=== PATIENT | male | born 1960 | race Caucasian/White ===

== ENCOUNTER 2022-12-11 09:08 | Outpatient (CLI) | payer OTHER, SELFPAY ==
--- NOTE | 2022-12-11 09:38 | CT_ITS ---
WS: [id number] CT chest wo con [id number] HISTORY: MAC TECHNIQUE: Axial imaging performed through the thorax. Coronal and sagittal reformats are submitted. All CT scans at [facility] use at least one of these dose optimization techniques: automated exposure control; mA and/or kV adjustment per patient size (includes targeted exams where dose is mat ched to clinical indication); or iterative reconstruction. CONTRAST: None DLP: 269.61 mGy.cm COMPARISON: None available. Lungs and central airway: Multilobar, bilateral irregular pulmonary masses. Some of these masses are cavitated with thick irregular escobar. The largest cavitation in the RIGHT upper lobe with asymmetric wall thickening measures 5.6 x 4.2 cm. Additional cavitations, scattered pulmonary nodules and tree-i n-bud airspace distribution. Irregular cavitary lesion LEFT upper lobe measures 2.5 x 4.2 cm. Additio nal scattered opacifications. Smaller cavitary lesions in the LEFT lung base measures 2.0 x 2.1 cm. T here are additional bilateral nodules with tree-in-bud airspace disease. Upper lobe bronchiectasis. Pleura: Normal. No pleural effusion. Heart and pericardium: Normal size heart with no pericardial effusion. Mediastinum and joe: Small mediastinal and hilar lymph nodes. Largest RIGHT paratracheal lymph node is 12 mm. Vessels: Mild size aorta and pulmonary artery. Chest wall and lower neck: No soft tissue masses. Upper abdomen: Small hiatal hernia. No adrenal mass. Osseous structures: No destructive process. CT/CT chest wo con [id number] IMPRESSION: 1. Numerous bilateral upper lobe cavitary masses. Additional small cavitary ma ss at the LEFT lung base and bilateral pulmonary nodules and tree-in-bud airspa ce disease. Bilateral upper lobe bronchiectasis. These findings can all be note d with MAC. 2. No prior studies for evaluate for progression or improvement. 3. No pleural effusion.
== END 2022-12-11 09:09 | disposition home or self-care (01) ==
PROVIDERS: PCP Family Medicine; Visit Provider Student in an Organized Health Care Education/Training Program
DX: A31.0 Pulmonary mycobacterial infection (principal)
CPT/HCPCS: 71250; 87070; 87205

== ENCOUNTER 2023-04-01 15:01 | Outpatient (CLI) | payer OTHER, SELFPAY ==
[2023-04-01 16:43] LABS: Basophils # 0.1 10^3/uL (0.0-0.1); Basophils % 1.1 %; Eosinophils # 2.7 10^3/uL (0.0-0.8); Eosinophils % 21.6 %; Hematocrit 48.9 % (42.0-52.0); Hemoglobin 15.1 g/dL (11.7-16.6); Lymphocytes # 2.2 10^3/uL (0.8-4.8); Lymphocytes % 17.7 %; Mean Corpuscular HGB Conc 30.9 g/dL (30.0-36.0); Mean Corpuscular Hemoglobin 26.8 pg (28.0-34.0); Mean Corpuscular Volume 86.9 fl (80-94); Monocytes # 1.1 10^3/uL (0.2-0.9); Neutrophils # 6.19 10^3/uL (1.8-7.7); Nucleated Red Blood Cells % 0 %; Platelet Count 317 10^3/cmm (130-400); Red Blood Count 5.63 10^6/uL (4.1-5.3); Red Cell Distribution Width 15.2 % (12.1-15.1); White Blood Count 12.4 10^3/uL (4.0-10.0)
[2023-04-05 17:19] LABS: Alternaria Alternata (M6) Ige 0.24 kU/L; Alternaria Class 0/1; Bermuda Class 0/1; Bermuda Grass (G2) Ige 0.11 kU/L; Cat Dander (E1) Ige <0.10 kU/L; Cat Dander Class 0; Common Ragweed (Short) (W1) Ig 0.18 kU/L; D. Farinae Class 0/1; Dermatophagoides Class 0/1; Dermatophagoides Farinae (D2) 0.13 kU/L; Dermatophagoides Pteronyssinus 0.16 kU/L; Dog Dander (E5) Ige <0.10 kU/L; Dog Dander Class 0; Elm (T8) Ige 0.21 kU/L; Elm Class 0/1; English Plantain (W9) Ige 0.11 kU/L; English Plantain Class 0/1; House Dust (Hollister- Stier) 0.23 kU/L; House Dust Class 0/1; Immunoglobulin E 4873 kU/L (<OR=114); Johnson Grass (G10) Ige 0.27 kU/L; Johnson Grass Cl 0/1; June Grass Class 0/1; June Grass(Kentucky Blue) (G8) 0.15 kU/L; Lamb'S Quarters (Goose Foot) 0.15 kU/L; Lamb'S Quarters Class 0/1; Maple (Box Elder) (T1) Ige 0.17 kU/L; Maple Class 0/1; Meadow Fescue (G4) Ige 0.14 kU/L; Meadow Fescue Class 0/1; Mucor Racemosus Class 0/1; Oak (T7) Ige 0.17 kU/L; Oak Class 0/1; Orchard Grass (Cocksfoot) (G3) 0.15 kU/L; Penicillium Class 2; Penicillium Notatum (M1) Ige 0.78 kU/L; Perennial Rye Grass (G5) Ige 0.14 kU/L; Perennial Rye Grass Class 0/1; Ragweeed Class 0/1; Rough Marsh Elder (W16) Ige 0.22 kU/L; Rough Marsh Elder Class 0/1; Sweet Vernal Class 0/1; Sweet Vernal Grass (G1) Ige 0.17 kU/L; Timothy Grass (G6) Ige 0.15 kU/L; Timothy Grass Class 0/1
[2023-04-08 13:03] LABS: Aspergillus Fumigatus, Igg Ab, 67.4 mg/L (<=102)
== END 2023-04-01 15:02 | disposition home or self-care (01) ==
LOC: LAB 15:03
PROVIDERS: Internal Medicine Pulmonary Disease; PCP Family Medicine; Visit Provider Student in an Organized Health Care Education/Training Program
DX: A31.0 Pulmonary mycobacterial infection (principal); J45.909 Unspecified asthma, uncomplicated; R06.02 Shortness of breath
CPT/HCPCS: 82785; 85025; 86003; 87015; 87116; 87206; 87801

== ENCOUNTER 2023-04-21 06:46 | Outpatient (CLI) | payer OTHER, SELFPAY ==
[2023-04-21 07:04] VITALS: BP 143/99
[2023-04-21 07:21] VITALS: PULSE 85; RESP 18; O2SAT 93
[2023-04-21] MEDS: albuterol 2.5 mg/3 mL Neb INHALATION (07:21)
[2023-04-21 07:26] VITALS: PULSE 96
== END 2023-04-21 06:47 | disposition home or self-care (01) ==
LOC: RT 06:48
PROVIDERS: PCP Family Medicine; Visit Provider Internal Medicine Pulmonary Disease
DX: A31.0 Pulmonary mycobacterial infection (principal)
CPT/HCPCS: 94060; 94618; 94726; 94729; J7613

== ENCOUNTER → 2023-05-20 11:40 | Outpatient (BNVA) | payer OTHER, SELFPAY | PROVIDERS: PCP Family Medicine; Visit Provider Internal Medicine Cardiovascular Disease | DX: A31.0 Pulmonary mycobacterial infection (principal); J82.83 Eosinophilic asthma; Z79.899 Other long term (current) drug therapy | CPT/HCPCS: 36415; 80053; 93005 ==

== ENCOUNTER 2023-06-03 06:39 | Outpatient (CLI) | payer OTHER, SELFPAY ==
[2023-06-03] MEDS: albuterol 2.5 mg/3 mL Neb INHALATION (07:37)
== END 2023-06-03 06:40 | disposition home or self-care (01) ==
PROVIDERS: PCP Family Medicine; Visit Provider Internal Medicine Pulmonary Disease
DX: A31.0 Pulmonary mycobacterial infection (principal)
CPT/HCPCS: 94060; 94726; 94729; J7613

== ENCOUNTER 2023-07-08 11:04 | Outpatient (CLI) | payer OTHER, SELFPAY ==
[2023-07-08 12:06] LABS: Alanine Aminotransferase 10 U/L (0-41); Albumin Level 4.2 g/dL (3.5-5.2); Alkaline Phosphatase 100 U/L (40-130); Aspartate Amino Transferase 20 U/L (0-40); Total Bilirubin 0.2 mg/dL (0.15-1.2); Total Protein 7.2 g/dL (6.6-8.7)
== END 2023-07-08 11:05 | disposition home or self-care (01) ==
LOC: LAB 11:06
PROVIDERS: PCP Family Medicine; Visit Provider Student in an Organized Health Care Education/Training Program
DX: A31.0 Pulmonary mycobacterial infection (principal); Z79.899 Other long term (current) drug therapy
CPT/HCPCS: 36415; 80076

== ENCOUNTER 2023-08-31 08:52 | Outpatient (CLI) | payer OTHER, SELFPAY | END 2023-08-31 08:53 | disposition home or self-care (01) | LOC: LAB 08:54 | PROVIDERS: PCP Family Medicine; Visit Provider Student in an Organized Health Care Education/Training Program | DX: A31.0 Pulmonary mycobacterial infection (principal) | CPT/HCPCS: 87015; 87116; 87206; 87801 ==

== ENCOUNTER 2023-09-21 07:33 | Outpatient (CLI) | payer OTHER, SELFPAY ==
--- NOTE | 2023-09-21 08:00 | CT_ITS ---
WS: [id number] CT chest wo con [id number] HISTORY: follow up pulomonary MAC TECHNIQUE: Axial imaging performed through the thorax. Coronal and sagittal reformats are submitted. All CT scans at [facility] use at least one of these dose optimization techniques: automated exposure control; mA and/or kV adjustment per patient size (includes targeted exams where dose is mat ched to clinical indication); or iterative reconstruction. CONTRAST: None DLP: 417.68 mGy.cm COMPARISON: 12/11/2022 Lungs and central airway: Previously described cavitary lesions and areas of consolidation have moder ately improved since 12/11/2022. Bilateral upper lobe predominance greatest on the RIGHT persists. The cavitary lesions are becoming smaller in size. The largest cavitary lesion in the RIGHT upper lobe is more consolidated and now measures 4.5 x 2.7 cm. There are persistent bilateral associated pulmonary nodules and conglomerations in the upper lobes. The LEFT lower lobe cavitary lesion and nodules mc entified without progression. The cavitation has improved. Pleura: Normal. No pleural effusion. Heart and pericardium: Normal size heart with no pericardial effusion. Mediastinum and joe: Mediastinal and hilar lymph nodes remain prominent and increased in size and nu mber but slightly improved. Vessels: Normal size aortic and pulmonary artery. No coronary artery calcifications. Chest wall and lower neck: No soft tissue masses. Upper abdomen: Moderate-sized hiatal hernia. Mild diverticulosis at the splenic flexure. Osseous structures: No destructive process. IMPRESSION: 1. Bilateral, predominantly upper lobe cavitary lesions and conglomerate masses have slightly improv ed since 12/11/2022. The areas of cavitation are decreasing. There has been no progression. 2. Moderate improvement in the LEFT lower lobe nodules and cavitation. 3. Slight improvement in the bilateral mediastinal or hilar adenopathy.
== END 2023-09-21 07:34 | disposition home or self-care (01) ==
PROVIDERS: PCP Family Medicine; Visit Provider Student in an Organized Health Care Education/Training Program
DX: J44.9 Chronic obstructive pulmonary disease, unspecified (principal); A31.0 Pulmonary mycobacterial infection
CPT/HCPCS: 71250

== ENCOUNTER → 2023-10-05 16:53 | Outpatient (BNVA) | payer OTHER, SELFPAY | PROVIDERS: PCP Family Medicine; Visit Provider Student in an Organized Health Care Education/Training Program | DX: Z79.899 Other long term (current) drug therapy (principal); A31.0 Pulmonary mycobacterial infection; J45.909 Unspecified asthma, uncomplicated | CPT/HCPCS: 36415; 80053; 85025 ==

== ENCOUNTER 2023-11-29 07:33 | Outpatient (CLI) | payer OTHER, SELFPAY ==
--- NOTE | 2023-11-29 08:00 | CT_ITS ---
WS: [id number] Exam: CT chest jyotsna santana [id number] Date/Time of Exam: 11/29/2023 7:38 AM Reason For Exam: follow up pulmonary MAC DLP: 364.[address] scans at [facility] use at least one of these dose optimization techniques: automated e xposure control; mA and/or kV adjustment per patient size (includes targeted exams where dose is matc hed to clinical indication); or iterative reconstruction. Comparison 09/21/2023. Previously described areas of consolidation and cavitation in both lungs have been stable since the l ast exam. Stable appearing pulmonary nodules in the mid and upper lung zones. The lungs are fully exp anded. No pleural or pericardial effusion. The thoracic aorta is normal in caliber. Mild mediastinal and perihilar lymphadenopathy noted unchanged. The airway is patent. The chest wall is intact. No sig nificant bony abnormality demonstrated. CT sections of the upper abdomen demonstrate a small hiatal h ernia. Several diverticuli in the visualized LEFT colon. IMPRESSION: 1. Stable areas of consolidation and cavitation in both lungs. 2. Multiple pulmonary nodules in the mid and upper lung zones unchanged. 3. Mild mediastinal and hilar lymphadenopathy. Stable.
== END 2023-11-29 07:34 | disposition home or self-care (01) ==
LOC: RAD 07:33
PROVIDERS: PCP Family Medicine; Visit Provider Student in an Organized Health Care Education/Training Program
DX: A31.0 Pulmonary mycobacterial infection (principal); R91.8 Other nonspecific abnormal finding of lung field; R59.0 Localized enlarged lymph nodes
CPT/HCPCS: 71250

== ENCOUNTER → 2024-02-08 12:52 | Outpatient (BNVA) | payer OTHER, SELFPAY | PROVIDERS: PCP Family Medicine; Visit Provider Student in an Organized Health Care Education/Training Program | DX: A31.0 Pulmonary mycobacterial infection (principal); Z79.899 Other long term (current) drug therapy; A31.9 Mycobacterial infection, unspecified; J82.83 Eosinophilic asthma; J45.909 Unspecified asthma, uncomplicated | CPT/HCPCS: 36415; 80053; 85025 ==

== ENCOUNTER → 2024-02-10 | Outpatient (BNVA) | payer OTHER, SELFPAY | PROVIDERS: PCP Family Medicine; Visit Provider Student in an Organized Health Care Education/Training Program | DX: A31.0 Pulmonary mycobacterial infection (principal); Z79.899 Other long term (current) drug therapy; A31.9 Mycobacterial infection, unspecified; J82.83 Eosinophilic asthma; J45.909 Unspecified asthma, uncomplicated | CPT/HCPCS: 87015; 87116; 87206; 87801 ==